=== PATIENT | male | born 1985 | race Caucasian/White ===

== ENCOUNTER 2022-06-16 13:37 | Emergency (ER) | payer OTHER ==
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
[2022-06-16] MEDS ORDERED: IBUPROFEN 400 MG TAB ONE (16:11)
[2022-06-16] MEDS ORDERED: IBUPROFEN 200 MG TAB PO ONE (16:11)
[2022-06-16] MEDS ORDERED: HYDROCODONE/APAP 10/325 TAB ONE (16:12)
[2022-06-16 18:44] VITALS: TEMP 98
[2022-06-16 18:45] VITALS: BP 102/67; O2SAT 96
== END 2022-06-16 18:38 ==
LOC: ER 13:37
PROC: 0HQ0XZZ Repair Scalp Skin, External Approach (ICD-10-PCS; principal; 2022-06-16)
DX: S62.302A Unspecified fracture of third metacarpal bone, right hand, initial encounter for closed fracture (principal); S02.2XXA Fracture of nasal bones, initial encounter for closed fracture; S01.01XA Laceration without foreign body of scalp, initial encounter; H11.31 Conjunctival hemorrhage, right eye; S20.411A Abrasion of right back wall of thorax, initial encounter; S00.12XA Contusion of left eyelid and periocular area, initial encounter; S00.11XA Contusion of right eyelid and periocular area, initial encounter; F17.210 Nicotine dependence, cigarettes, uncomplicated
CPT/HCPCS: 70450; 70486; 71250; 72125; 76377; 99284